=== PATIENT | female | born 1950 | race Caucasian/White ===

== ENCOUNTER 2022-04-08 11:02 | Outpatient (CLI) | payer MEDICARE, OTHER | END 2022-04-08 11:03 | disposition home or self-care (01) | LOC: BICULT 11:02 | PROVIDERS: ATTEND Internal Medicine | DX: N28.9 Disorder of kidney and ureter, unspecified (principal); R10.10 Upper abdominal pain, unspecified; K76.89 Other specified diseases of liver; N28.1 Cyst of kidney, acquired; R93.422 Abnormal radiologic findings on diagnostic imaging of left kidney | CPT/HCPCS: 76700 ==